=== PATIENT | female | born 1950 | race Caucasian/White ===

== ENCOUNTER 2017-10-02 14:10 | Emergency (ER) | payer MEDICARE, MEDICAID ==
[~2017-10-02] VITALS: Ht 160 cm; Wt 99.9 kg
[~2017-10-02 14:10] MED LIST: DIPH25CA PO; DOXY-179 PO; DOXY25TA11 PO; FURO20TA19 PO; HYDR-4225 PO; LISI-351 PO; LISI20TA29 PO; NYST15CR32 TP; OXYC-865 PO; OXYC-869 PO; TRAZ-156 PO
--- NOTE | 2017-10-02 14:43 | ER Report ---
History and Physical Time Seen By MD: 14:25 Hx. of Stated Complaint: pt reports R lower leg infection for 3 months HPI/ROS CHIEF COMPLAINT: Leg wounds and swelling HISTORY OF PRESENT ILLNESS: 67-year-old female comes emergency Department today with a complaint of bilateral leg swelling and wounds to both lower extremities after pruritic episodes which caused her to have skin breakdown and nauseous Obvious infectious etiology. Patient is a significant smoker she has a long history of chronic diseases patient has been fired from numerous primary care providers within our community patient states that she has had her legs elevated was on antibiotics as an outpatient does not feel any better at this time denies any chest pain is a chronic cough chronic bronchitis REVIEW OF SYSTEMS: Respiratory: Cough without shortness of breath Cardiovascular: No chest pain, no palpitations. Gastrointestinal: No vomiting, no abdominal pain. Musculoskeletal: No back pain. Remainder of the 14 system rev: Yes Allergies: Coded Allergies: Penicillins (Verified Allergy, Intermediate, 10/02/17) Sulfa (Sulfonamide Antibiotics) (Verified Allergy, Unknown, 10/02/17) tetanus and diphtheria toxoids (Verified Allergy, Unknown, 10/02/17) Home Meds Reported Medications Cyclobenzaprine Hcl (CYCLOBENZAPRINE HCL) 10 Mg Tablet, 10 MG PO QDAY, #9 TAB 10/02/17 Allopurinol (ZYLOPRIM) 300 Mg Tablet, 300 MG PO QDAY, TAB 10/02/17 Gabapentin (GABAPENTIN) 600 Mg Tablet, 600 MG PO QPM 10/02/17 Oxycodone Hcl/Acetaminophen (PERCOCET 5-325 MG TABLET) 1 Each Tablet, 1 EACH PO PRN, TAB 12/21/16 Lisinopril (LISINOPRIL) 20 Mg Tablet, 1 TAB PO QDAY, TAB 12/21/16 Discontinued Reported Medications Diphenhydramine Hcl (ZZZQUIL) 25 Mg Capsule, 2 TAB PO HS, CAPSULE 12/21/16 Discontinued Scripts Hydroxyzine Hcl (HYDROXYZINE HCL) 25 Mg Tablet, 0.5 TAB PO Q6-8H, #20 TAB Prov:[facility]- 08/26/17 Doxycycline Hyclate (DOXYCYCLINE HYCLATE) 100 Mg Tablet, 100 MG PO BID for 10 Days, #20 TAB Prov:[facility]- 11/25/17 NYSTATIN 420464 UNT/ML Topical Cream (NYSTATIN 294066 UNT/ML Topical Cream) 15 Gm Cream..g., 15 GM TP BID, #15 Prov:CATY LAN DO 08/30/16 Reviewed Nurses Notes: Yes Old Medical Records Reviewed: Yes Smoking Status: Current: Every Day Smoker Hx Substance Use Disorder: No Hx Alcohol Use: No Constitutional Vital Sign - Last 24 Hours 10/02/17 10/02/17 10/02/17 10/02/17 14:21 14:21 14:25 14:30 Temp 97.7 Pulse 106 93 88 Resp 16 B/P (MAP) 116/86 (96) 116/86 Pulse Ox 92 95 90 O2 Delivery Room Air 10/02/17 10/02/17 10/02/17 10/02/17 14:35 14:40 14:55 15:00 Pulse 85 94 92 86 Pulse Ox 88 92 91 10/02/17 10/02/17 10/02/17 10/02/17 15:05 15:10 15:20 15:25 Pulse 92 94 80 Pulse Ox 90 92 81 92 10/02/17 10/02/17 10/02/17 10/02/17 15:30 15:35 15:40 15:45 Pulse 78 80 83 99 Pulse Ox 92 89 89 87 10/02/17 10/02/17 10/02/17 10/02/17 15:50 15:55 16:00 16:05 Pulse 78 85 80 88 Pulse Ox 90 93 91 87 10/02/17 10/02/17 10/02/17 10/02/17 16:10 16:15 16:20 16:30 Pulse 96 89 86 96 Pulse Ox 88 93 82 10/02/17 16:35 Pulse 97 B/P (MAP) 112/67 (82) Pulse Ox 82 Physical Exam General Appearance: The patient is alert, has no immediate need for airway protection and no current signs of toxicity. [ ] Eyes: Pupils equal and round no injection. Respiratory: Coarse breath sounds bilateral Cardiac: regular rate and rhythm [ ] Gastrointestinal: Abdomen is soft and non tender, no masses, bowel sounds normal. Musculoskeletal: Neck: Neck is supple and non tender. Bilateral lower extremities have +1 pitting edema Skin: Noted skin breakdown in multiple locations worse of being on the right posterior calf with a 1 cm early stage I decubital ulcer multiple small effusions and pruritic changes [ ] DIFFERENTIAL DIAGNOSIS: After history and physical exam differential diagnosis was considered for cellulitis versus DVT Medical Decision Making Data Points Result Diagram: 10/02/17 1450 10/02/17 1450 Laboratory Hematology Test 10/02/17 14:50 Red Blood Count 4.75 M/uL (4.17-5.56) Mean Corpuscular Volume 96.2 fL (80.0-96.0) Mean Corpuscular Hemoglobin 32.7 pg (26.0-33.0) Mean Corpuscular Hemoglobin Concent 34.0 g/dL (32.0-36.0) Red Cell Distribution Width 15.8 % (11.5-14.5) Mean Platelet Volume 10.5 fL (7.2-11.1) Neutrophils (%) (Auto) 72.4 % (39.4-72.5) Lymphocytes (%) (Auto) 16.0 % (17.6-49.6) Monocytes (%) (Auto) 7.8 % (4.1-12.4) Eosinophils (%) (Auto) 3.0 % (0.4-6.7) Basophils (%) (Auto) 0.8 % (0.3-1.4) Nucleated RBC Relative Count (auto) 0.1 /100WBC Neutrophils # (Auto) 4.2 K/uL (2.0-7.4) Lymphocytes # (Auto) 0.9 K/uL (1.3-3.6) Monocytes # (Auto) 0.5 K/uL (0.3-1.0) Eosinophils # (Auto) 0.2 K/uL (0.0-0.5) Basophils # (Auto) 0.0 K/uL (0.0-0.1) Nucleated RBC Absolute Count (auto) 0.00 K/uL D-Dimer Quantitative (PE/DVT) 0.93 ug/ml (0-0.50) Sodium Level 137 mmol/L (137-145) Potassium Level 4.7 mmol/L (3.5-5.0) Chloride Level 104 mmol/L (98-107) Carbon Dioxide Level 24 mmol/L (22-31) Blood Urea Nitrogen 20 mg/dl (7-18) Creatinine 1.30 mg/dl (0.52-1.04) Glomerular Filtration Rate Calc 40.7 Random Glucose 90 mg/dl (75-110) Calcium Level 9.0 mg/dl (8.4-10.2) Total Bilirubin 0.5 mg/dl (0.2-1.3) Aspartate Amino Transf (AST/SGOT) 22 U/L (0-35) Alanine Aminotransferase (ALT/SGPT) 29 U/L (0-56) Alkaline Phosphatase 144 U/L (0-126) Troponin I < 0.012 ng/ml B-Type Natriuretic Peptide 8 pg/ml (0-100) Total Protein 7.1 gm/dl (6.3-8.2) Albumin 4.0 g/dl (3.5-5.0) Chemistry Test 10/02/17 14:50 White Blood Count 5.9 k/uL (4.5-11.0) Red Blood Count 4.75 M/uL (4.17-5.56) Hemoglobin 15.5 g/dL (12.0-16.0) Hematocrit 45.7 % (34.0-47.0) Mean Corpuscular Volume 96.2 fL (80.0-96.0) Mean Corpuscular Hemoglobin 32.7 pg (26.0-33.0) Mean Corpuscular Hemoglobin Concent 34.0 g/dL (32.0-36.0) Red Cell Distribution Width 15.8 % (11.5-14.5) Platelet Count 112 K/uL (150-450) Mean Platelet Volume 10.5 fL (7.2-11.1) Neutrophils (%) (Auto) 72.4 % (39.4-72.5) Lymphocytes (%) (Auto) 16.0 % (17.6-49.6) Monocytes (%) (Auto) 7.8 % (4.1-12.4) Eosinophils (%) (Auto) 3.0 % (0.4-6.7) Basophils (%) (Auto) 0.8 % (0.3-1.4) Nucleated RBC Relative Count (auto) 0.1 /100WBC Neutrophils # (Auto) 4.2 K/uL (2.0-7.4) Lymphocytes # (Auto) 0.9 K/uL (1.3-3.6) Monocytes # (Auto) 0.5 K/uL (0.3-1.0) Eosinophils # (Auto) 0.2 K/uL (0.0-0.5) Basophils # (Auto) 0.0 K/uL (0.0-0.1) Nucleated RBC Absolute Count (auto) 0.00 K/uL D-Dimer Quantitative (PE/DVT) 0.93 ug/ml (0-0.50) Glomerular Filtration Rate Calc 40.7 Calcium Level 9.0 mg/dl (8.4-10.2) Total Bilirubin 0.5 mg/dl (0.2-1.3) Aspartate Amino Transf (AST/SGOT) 22 U/L (0-35) Alanine Aminotransferase (ALT/SGPT) 29 U/L (0-56) Alkaline Phosphatase 144 U/L (0-126) Troponin I < 0.012 ng/ml B-Type Natriuretic Peptide 8 pg/ml (0-100) Total Protein 7.1 gm/dl (6.3-8.2) Albumin 4.0 g/dl (3.5-5.0) Coagulation Test 10/02/17 14:50 D-Dimer Quantitative (PE/DVT) 0.93 ug/ml ED Course/Re-evaluation ED Course 67-year-old female chronic visitor to the emergency department comes in with obvious infected wounds to her leg we'll start her on by mouth antibiotics CT angiogram performed secondary to shortness of breath no sign of blood clot but definitely. Changes consistent with her chronic smoking history I will refer to a outside physician however she has been terminated from numerous practices unclear who she can follow up with laboratory follow-up with [facility] if necessary Decision to Disposition Date: Oct 02, 2017 Decision to Disposition Time: 17:31 Depart Departure Latest Vital Signs Vital Signs Date Time Temp Pulse Resp B/P (MAP) Pulse Ox O2 Delivery O2 Flow Rate FiO2 10/02/17 16:35 97 112/67 (82) 82 10/02/17 14:21 97.7 16 Room Air Impression: Primary Impression: Lower limb ulcer, calf Condition: Condition Unchanged Disposition: HOME OR SELF-CARE New Scripts Clindamycin Hcl (CLINDAMYCIN HCL) 300 Mg Capsule 300 MG PO Q6H for 10 Days, #40 CAPSULE Prov: GENNARO DOWLING MD 10/02/17 Patient Instructions: Cellulitis (DC) GENNARO DOWLING MD Oct 02, 2017 14:43
[2017-10-02] MEDS ORDERED: CYCL10TA29 PO (14:50)
[2017-10-02] MEDS ORDERED: ALLO-119 PO (14:50)
[2017-10-02] MEDS ORDERED: GABA-503 PO (14:50)
--- NOTE | 2017-10-02 14:57 | EKG ---
FACILITY: PATIENT NAME: ERIC LUNSFORD : [id number] MR: [id number] V: [id number] EXAM DATE: ORDERING PHYSICIAN: GENNARO DOWLING TECHNOLOGIST: Test Reason : Blood Pressure : / mmHG Vent. Rate : 093 BPM Atrial Rate : 090 BPM P-R Int : 000 ms QRS Dur : 088 ms QT Int : 384 ms P-R-T Axes : 000 083 036 degrees QTc Int : 477 ms Atrial fibrillation Septal infarct , age undetermined Abnormal ECG When compared with ECG of 26-AUG-2017 16:47, Atrial fibrillation has replaced Junctional rhythm Septal infarct is now present T wave inversion now evident in Lateral leads Confirmed by GEORGE BALDERAS ([id number]) on 10/02/2017 9:44:19 PM Referred By: Confirmed By:GEORGE BALDERAS
[2017-10-02 15:06] LABS: PLATELET COUNT, AUTOMATED 112 K/uL (150-450)
--- NOTE | 2017-10-02 15:32 | RADIOLOGY IMAGING REPORT ---
FACILITY: [facility] [place] PATIENT NAME: Pavan Jorgensen : 1950 MR: [id number] V: [id number] EXAM DATE: ORDERING PHYSICIAN: GENNARO DOWLING TECHNOLOGIST: Location: [facility] Patient: Pavan Jorgensen : 1950 Visit/Account:[id number] Date of Sevice: 10/02/2017 EXAMINATION: Chest 2 Views HISTORY: Shortness of breath COMPARISON: 08/26/2017. FINDINGS: Stable mild chronic appearing interstitial changes bilaterally with hyperinflation of the lungs. No n ew focal consolidation or pleural effusion. No pneumothorax. Heart size at the upper limits of normal, with normal pulmonary vascularity. Aortic calcification. No acute osseous findings in the chest. IMPRESSION: 1. No evidence of acute cardiopulmonary disease. 2. Hyperinflation with stable chronic interstitial changes. Report Dictated By: Chalo Donato MD at 10/02/2017 3:27 PM Report E-Signed By: Chalo Donato MD at 10/02/2017 3:29 PM WSN:[id number]
[2017-10-02] MEDS ORDERED: IOPAMIDOL 76% 100 ML INFUS BTL 100 ML ONE (16:05)
[2017-10-02] MEDS ORDERED: NS 0.9% 50 ML VIAL 100 ML ONE (16:05)
--- NOTE | 2017-10-02 17:01 | RADIOLOGY IMAGING REPORT ---
FACILITY: [facility] PATIENT NAME: Pavan Jorgensen : 1950 MR: [id number] V: [id number] EXAM DATE: ORDERING PHYSICIAN: GENNARO DOWLING TECHNOLOGIST: Location: [facility] [place] Patient: Pavan Jorgensen : 1950 Visit/Account:[id number] Date of Sevice: 10/02/2017 EXAMINATION: Bilateral lower extremity deep vein duplex Doppler ultrasound HISTORY: Leg swelling. COMPARISON: 08/26/2017 FINDINGS: Grayscale, duplex and color Doppler interrogation of the bilateral lower extremity deep veins from co mmon femoral vein to proximal calf was completed. The greater saphenous vein in the right and left pr oximal thigh was evaluated using similar technique. Right lower extremity: Common femoral vein: Negative. Femoral vein: Negative. Deep femoral vein: Negative. Popliteal vein: Negative. Visualized deep calf veins: Negative. Greater saphenous vein in the proximal thigh: Negative. Popliteal fossa: Negative. Waveforms: Normal respiratory phasicity. Left lower extremity: Common femoral vein: Negative. Femoral vein: Negative. Deep femoral vein: Negative. Popliteal vein: Negative. Visualized deep calf veins: Negative. Greater saphenous vein in the proximal thigh: Negative. Popliteal fossa: Negative. Waveforms: Normal respiratory phasicity. Other findings: Subcutaneous soft tissue edema in both lower legs. IMPRESSION: No evidence of deep venous thrombosis of either lower extremity. Subcutaneous soft tissue edema in both lower legs. Report Dictated By: Abdulkadir Flores MD at 10/02/2017 4:55 PM Report E-Signed By: Abdulkadir Flores MD at 10/02/2017 4:58 PM WSN:[id number]
--- NOTE | 2017-10-02 17:26 | RADIOLOGY IMAGING REPORT ---
FACILITY: [facility] [place] PATIENT NAME: Pavan Jorgensen : 1950 MR: [id number] V: [id number] EXAM DATE: ORDERING PHYSICIAN: GENNARO DOWLING TECHNOLOGIST: Location: [facility] Patient: Pavan Jorgensen : 1950 Visit/Account:[id number] Date of Sevice: 10/02/2017 EXAMINATION: CTA of the chest with IV contrast HISTORY: Shortness of breath. TECHNIQUE: Pulmonary embolus protocol - Thin axial CT images of the chest were obtained with IV con trast during maximal pulmonary arterial opacification. Reconstruction of the source data includes mul tiplanar 2D coronal and sagittal reconstructed images, and 3D coronal and sagittal MIP images. Repres entative images have been stored on PACS. One of the following dose optimization techniques was utilized in the performance of this exam: Autom ated exposure control; adjustment of the mA and/or kV according to the patient's size; or use of an i terative reconstruction technique. Specific details can be referenced in the facility's radiology C T exam operational policy. Contrast: 100 mL of IV Isovue-370. COMPARISON: None. FINDINGS: Pulmonary arteries: The pulmonary arteries are well opacified, without suspicious filling defect. Heart, aorta, and great vessels: Normal caliber thoracic aorta, without aneurysm or dissection. Vasc ular calcifications, including mild coronary artery calcification. Borderline cardiac enlargement. No pericardial effusion. Lungs and pleura: There is a small bandlike region of consolidative opacity in the right middle lobe and right upper lobe anteriorly along the minor fissure, with some adjacent parenchymal retraction a nd volume loss. There is an adjacent noncalcified 5 mm pulmonary nodule. There are a few strands of scarring or linear atelectasis in the lung bases. No other focal consolida tion. No pleural effusion or pneumothorax. The central airways are patent. Mediastinum and lupillo: Negative. Visualized upper abdomen: Fatty infiltration the liver. Cholelithiasis, partially visualized gallsto addison in the dependent gallbladder. Chest wall: Negative. Bones: Negative. IMPRESSION: 1. No evidence of pulmonary embolism. 2. Small bandlike region of consolidative opacity in the right midlung anteriorly along the minor fis sure, with associated parenchymal retraction and volume loss. Small adjacent 5 mm pulmonary nodule. T hese changes may be postinflammatory in nature with chronic parenchymal scarring. CT follow-up may be appropriate to document stability. 3. No other acute findings in the chest. Report Dictated By: Chalo Donato MD at 10/02/2017 5:11 PM Report E-Signed By: Chalo Donato MD at 10/02/2017 5:23 PM WSN:[id number]
[2017-10-02] MEDS ORDERED: CLIN300C99 PO (17:33)
[2017-10-02 17:41] VITALS: BP 125/82
== END 2017-10-02 17:38 | disposition home or self-care (01) ==
LOC: ER 14:39
DX: L89.891 Pressure ulcer of other site, stage 1 (principal); I48.91 Unspecified atrial fibrillation; R05 Cough; E11.9 Type 2 diabetes mellitus without complications; F17.200 Nicotine dependence, unspecified, uncomplicated
CPT/HCPCS: 36415; 71046; 71275; 83880; 84484; 85025; 85379; 87040; 93005; 93970; 99284; J7050; Q9967; 82040; 82247; 82310; 82374; 82435; 82565; 82947; 84075; 84132; 84155; 84295; 84450; 84460; 84520

== ENCOUNTER 2018-04-03 18:52 | Emergency (ER) | payer MEDICARE, MEDICAID ==
[~2018-04-03 18:52] MED LIST changes: +ALLO-119 PO; +CLIN300C99 PO; +CYCL10TA29 PO; +GABA-503 PO; -TRAZ-156 PO; +TRAZ50TA34 PO
[2018-04-03 19:00] VITALS: BP 141/77
[2018-04-03] MEDS ORDERED: BUPR-133 PO (19:09)
[2018-04-03] MEDS ORDERED: TRIAMCINOLONE ACE 40 MG/ML VL IM ONE (19:20)
--- NOTE | 2018-04-03 19:36 | ER Report ---
History and Physical Time Seen By MD: 19:00 Hx. of Stated Complaint: PT REPORTS THAT SHE HAS CHRONIC PAIN IN RIGHT HIP AND THAT IT HAS BEEN OUT FOR 2 DAYS NOW. HPI/ROS Patient's 68-year-old female she has chronic pain in her back and in her right hip sees pain specialist at [facility] also has her primary care at [facility] and has Percocet at home for pain which she takes One-A-Day has not had any today mom states that her hip pain because that she's had to walk crooked with her back feels much worse no pain she is asking for some steroids for her hip Allergies: Coded Allergies: Penicillins (Verified Allergy, Intermediate, 04/03/18) Sulfa (Sulfonamide Antibiotics) (Verified Allergy, Unknown, 04/03/18) tetanus and diphtheria toxoids (Verified Allergy, Unknown, 04/03/18) Home Meds Reported Medications Bupropion Hcl (WELLBUTRIN SR) 100 Mg Tablet.er, 100 MG PO QDAY, TAB 04/03/18 Cyclobenzaprine Hcl (CYCLOBENZAPRINE HCL) 10 Mg Tablet, 10 MG PO QDAY, #9 TAB 10/02/17 Allopurinol (ZYLOPRIM) 300 Mg Tablet, 300 MG PO QDAY, TAB 10/02/17 Gabapentin (GABAPENTIN) 600 Mg Tablet, 600 MG PO QPM 10/02/17 Oxycodone Hcl/Acetaminophen (PERCOCET 5-325 MG TABLET) 1 Each Tablet, 1 EACH PO PRN, TAB 12/21/16 Lisinopril (LISINOPRIL) 20 Mg Tablet, 1 TAB PO QDAY, TAB 12/21/16 Discontinued Scripts Clindamycin Hcl (CLINDAMYCIN HCL) 300 Mg Capsule, 300 MG PO Q6H for 10 Days, # 40 CAPSULE Prov:GENNARO DOWLING MD 10/02/17 Past Medical/Surgical History Tonsillectomy, headaches, circulatory issue, open heart surgery in 1957, hypertension, COPD, sleep apnea, irritable bowel, hysterectomy, fibromyalgia, chronic back and hip pain Reviewed Nurses Notes: Yes Old Medical Records Reviewed: Yes Smoking Status: Current: Every Day Smoker Hx Substance Use Disorder: No Hx Alcohol Use: No Family History of: HTN Constitutional Vital Sign - Last 24 Hours 04/03/18 04/03/18 04/03/18 04/03/18 18:58 19:00 19:07 19:22 Temp 98.5 Pulse 86 93 97 Resp 16 B/P (MAP) 141/77 (98) 141/77 Pulse Ox 90 87 87 O2 Delivery Room Air Physical Exam 68-year-old female alert oriented mild distress HEENT has normocephalic atraumatic tympanic membranes are non-reddened throat is non-reddened neck is supple no JVD heart rate regular no murmurs rubs and gallops lungs clear to auscultation abdomen is obese bowel sounds 4 quadrants a 7 mild tenderness to her right hip with palpation pelvis is intact moves all extremities full peripheral pulses Medical Decision Making ED Course/Re-evaluation ED Course Hip injection done she had good relief after the injection will follow-up with her primary care physician and her chronic pain management doctor Re-evaluation Will be diagnosed with chronic hip pain Procedure Right hip injection with 40 mg of Kenalog and 3 mL of 2% plain lidocaine prepped with Betadine and then under sterile sterile procedure tolerated procedure well skin was injected with 1% lidocaine before injection she had good pain relief after Kenalog Decision to Disposition Date: Apr 03, 2018 Decision to Disposition Time: 19:00 Depart Departure Latest Vital Signs Vital Signs Date Time Temp Pulse Resp B/P (MAP) Pulse Ox O2 Delivery O2 Flow Rate FiO2 04/03/18 19:22 97 87 04/03/18 19:00 98.5 16 141/77 Room Air Impression: Primary Impression: Right hip pain Condition: Improved Disposition: HOME OR SELF-CARE Patient Instructions: Hip Pain (ED) Additional Instructions: Follow-up with your primary care and pain specialist that Kait take medications as instructed in home DELANEY GARCIA Apr 03, 2018 19:36
== END 2018-04-03 19:46 | disposition home or self-care (01) ==
LOC: ER 19:38
DX: M25.551 Pain in right hip (principal)
CPT/HCPCS: 96372; 99282; A9270; J3301

== ENCOUNTER → 2018-07-25 | Outpatient (CLI) | payer MEDICARE, MEDICAID ==
[~2018-07-25] MED LIST changes: +BUPR-133 PO
== END ==
LOC: LAB 15:30
PROVIDERS: ATTEND Physician Assistant
DX: F17.200 Nicotine dependence, unspecified, uncomplicated (principal)
CPT/HCPCS: 36415; 80323

== ENCOUNTER → 2018-12-11 | Outpatient (CLI) | payer MEDICARE, MEDICAID ==
[~2018-12-11] MED LIST changes: -GABA-503 PO; +GABA-533 PO
--- NOTE | 2018-12-11 15:38 | RADIOLOGY IMAGING REPORT ---
FACILITY: [facility] PATIENT NAME: Pavan Jorgensen : 1950 MR: [id number] V: [id number] EXAM DATE: ORDERING PHYSICIAN: IRENA BARRY TECHNOLOGIST: Location: [facility] [place] Patient: Pavan Jorgensen : 1950 Visit/Account:[id number] Date of Sevice: 12/11/2018 MR HIP W/O CON RT HISTORY: Hip pain COMPARISON: None TECHNIQUE: Multiplanar/multisequence was obtained through the right hip without contrast. CONTRAST: None FINDINGS: Right hip: Joint space: Moderate superior-lateral joint space narrowing with moderate-severe thinning of the art icular cartilage Bone marrow: Bone marrow edema with moderate subchondral cystic change within the superior aspect of the femoral head. Small subchondral cysts within the superior-medial acetabulum Labrum: Extensive degenerative labral tearing anteriorly and superiorly. Effusion: None Other findings: None significant Limited images of the left hip: Joint space: Moderate narrowing Bone marrow: Normal Effusion: None Other findings: None significant Bony pelvis: Normal Pubic symphysis and SI joints: Normal Myotendinous structures: Normal Soft tissues: Normal Intrapelvic and lower abdominal findings: Simple bilateral renal cysts measuring up to 3 cm. Colonic diverticulosis. Mildly enlarged bilateral external iliac lymph nodes measuring up to 2.4 x 0.9 cm on the left. Mildly enlarged left inguinal lymph node measuring 1.7 x 1.0 cm. Visualized spine: Normal Other findings: None significant IMPRESSION: 1. Right hip shows moderate-severe degenerative changes with joint space narrowing, chondrosis and tirado bchondral edema/cystic change within the femoral head. There is extensive degenerative labral tearing anteriorly and superiorly. 2. Mildly enlarged bilateral external iliac lymph nodes and mildly enlarged left inguinal lymph node are nonspecific Report Dictated By: Jaime Carpenter MD at 12/11/2018 3:26 PM Report E-Signed By: Jaime Carpenter MD at 12/11/2018 3:32 PM WSN:[email or web address]
== END ==
LOC: MRI 01:44
PROVIDERS: ATTEND Nurse Practitioner
DX: M16.11 Unilateral primary osteoarthritis, right hip (principal); R59.0 Localized enlarged lymph nodes